=== PATIENT | female | born 1960 | race Hispanic/Latino ===

== ENCOUNTER 2020-07-01 12:26 | Emergency (ER) | payer BC ==
[2020-07-01] MEDS ORDERED: Boostrix 0.5 ML (Tdap) VIAL ONE (13:23)
== END 2020-07-01 13:45 | disposition home or self-care (01) ==
LOC: ERS 12:26
DX: S01.01XA Laceration without foreign body of scalp, initial encounter (principal); Z23 Encounter for immunization; W01.198A Fall on same level from slipping, tripping and stumbling with subsequent striking against other object, initial encounter
CPT/HCPCS: 12001; 90471; 90715